=== PATIENT | female | born 1955 | race Hispanic/Latino ===

== ENCOUNTER 2021-02-13 06:28 | Observation (INO) | payer OTHER, MEDICARE ==
[2021-02-07 11:37] LABS: BASOPHILS % (AUTO) 0.6 % (0.0-5.0); EOSINOPHILS % (AUTO) 2.1 % (0.0-8.0); HEMATOCRIT 39.2 % (36-48); LYMPHOCYTES % (AUTO) 14.6 % (21.0-51.0); MEAN CORPUSCULAR HEMOGLOBIN 28.7 pg (27.0-33.0); MEAN CORPUSCULAR HGB CONC 32.1 g/dL (32.0-36.0); MEAN CORPUSCULAR VOLUME 89.3 fL (79-99); MONOCYTES % (AUTO) 6.6 % (3.0-13.0); NEUTROPHILS % (AUTO) 75.8 % (40.0-77.0); PLATELET COUNT (AUTO) 279 K/uL (130-400); RED BLOOD CELL COUNT(AUTO) 4.39 MIL/uL (4.00-5.50); RED CELL DISTRIBUTION WIDTH 14.4 % (11.0-15.5); WHITE BLOOD COUNT (AUTO) 10.1 K/uL (4.8-10.8)
[2021-02-07 11:48] LABS: CREATININE 0.5 mg/dL (0.5-1.5); POTASSIUM 4.2 mmol/L (3.5-5.1)
[2021-02-07 11:51] LABS: INR 0.93 (0.85-1.15); PROTHROMBIN TIME 10.2 SEC (9.6-11.6)
[2021-02-07 11:52] LABS: PARTIAL THROMBOPLASTIN TIME 26.9 SEC (26.3-35.5)
[2021-02-13] VITALS (21 sets, daily range): BP systolic 106–160; BP diastolic 57–76
[~2021-02-13] VITALS: Ht 154.9 cm; Wt 72.3 kg
[~2021-02-13 06:28] MED LIST: AEC81 PO; ALEN70TA80 PO; ATOR20TA65 PO; BETA1TAB18 PO; BIMA12.5OS OD; BRIM15OS OD; CALC-17 PO; CALCIUM PO; CYCL30DR OP; DORZ10DR9 OD; FISH1CAP63 PO; GLUC-252 PO; LISI40TA9 PO; METF-444 PO; METO-391 PO; NETA2.5D OP; [UNRECOGNIZED DRUG - OTHER] PO; multivitamin PO
[2021-02-13] MEDS ORDERED: BACITRACIN 28.4 GM OINT TP ONE (07:02)
[2021-02-13] MEDS ORDERED: 0.9%NACL 1000ML 1,000 ML IV ONE (07:07)
[2021-02-13] MEDS ORDERED: LIDOCAINE HCL/EPINEPHRINE 50 ML VIAL IJ SCH ×2 (07:30)
[2021-02-13] MEDS ORDERED: LIDOCAINE HCL-MPF 1% 5ML AMP IJ ONE (07:33)
[2021-02-13] MEDS ORDERED: PROPOFOL 10 MG/ML 20ML VIAL IV ONE (07:33)
[2021-02-13] MEDS ORDERED: SUCCINYLCHOLINE CHLORIDE 20 MG/ML 10 ML VIAL ONE (07:33)
[2021-02-13] MEDS ORDERED: MIDAZOLAM HCL 1 MG/ML 2ML VIAL ONE (07:33)
[2021-02-13] MEDS ORDERED: FENTANYL CITRATE PF 50 MCG/1 ML 5ML AMP IV ONE (07:34)
[2021-02-13] MEDS ORDERED: ROCURONIUM 10MG/1ML SYR 10 MG/ML ML ONE (07:34)
[2021-02-13] MEDS ORDERED: CEFAZOLIN SODIUM 1 GM VIAL ONE (07:50)
[2021-02-13] MEDS ORDERED: EPHEDRINE SULFATE 50 MG/ML AMPULE ONE (08:09)
[2021-02-13] MEDS ORDERED: PHENYLEPHRINE HCL 10 MG/ML 1ML VIAL IV ONE (10:18)
[2021-02-13] MEDS ORDERED: FENTANYL CITRATE PF 50 MCG/1 ML 2ML VIAL ONE (10:29)
[2021-02-13] MEDS ORDERED: HYDROMORPHONE HCL 2 MG TAB PO PRN (14:00)
[2021-02-13] MEDS: ACETAMINOPHEN 500 MG TABLET PO SCH ×2 (14:04→20:18)
[2021-02-13] MEDS: ONDANSETRON 4MG INJ IVP PRN (17:54)
[2021-02-13] MEDS ORDERED: BRIMONIDINE TARTRATE 0.2% 5 ML BOTTLE OD SCH (21:00)
[2021-02-13] MEDS ORDERED: Cyclosporine (Restasis) 1 EACH OP SCH (21:00)
[2021-02-14] MEDS: ACETAMINOPHEN 500 MG TABLET PO SCH ×2 (02:03→08:00)
[2021-02-14] MEDS: ONDANSETRON 4MG INJ IVP PRN (02:06)
[2021-02-14 03:00] VITALS: BP 106/59
[2021-02-14] MEDS ORDERED: METFORMIN HCL 500 MG TABLET PO SCH (09:00)
[2021-02-14] MEDS ORDERED: FISH OIL 1000 MG/CAP PO SCH (09:00)
[2021-02-14] MEDS ORDERED: LISINOPRIL 40 MG TABLET PO SCH (09:00)
[2021-02-14] MEDS ORDERED: ATORVASTATIN 20 MG TABLET PO SCH (09:00)
[2021-02-14] MEDS ORDERED: GLUCOSAMINE PO SCH (09:00)
[2021-02-14] MEDS ORDERED: D3 PO SCH (09:00)
[2021-02-14] MEDS ORDERED: VIT A C PO SCH (09:00)
[2021-02-14] MEDS ORDERED: [UNRECOGNIZED DRUG - OTHER] PO SCH (09:00)
[2021-02-14] MEDS ORDERED: Bimatoprost (Lumigan 0.01% Ophth Soln) OD SCH (09:00)
[2021-02-14] MEDS ORDERED: CALCIUM CARB 500MG PO SCH (09:00)
[2021-02-14] MEDS ORDERED: BOSWELLIA SERRA PO SCH (09:00)
[2021-02-14] MEDS ORDERED: LUTEIN PO SCH (09:00)
[2021-02-14] MEDS ORDERED: METOPROLOL SUCCINATE 50 MG TAB.SR.24H PO SCH (09:00)
[2021-02-14] MEDS ORDERED: MINERALS PO SCH (09:00)
[2021-02-14] MEDS ORDERED: BACITRACIN 28.4 GM OINT TP SCH (09:00)
[2021-02-14] MEDS ORDERED: NETARSUDIL MESYLATE OP SCH (09:00)
[2021-02-14] MEDS ORDERED: DORZOLAMIDE HCL 2% 10ML DROPS OD SCH (09:00)
[2021-02-14] MEDS ORDERED: BACI28OI8 TP (10:42)
== END 2021-02-14 11:30 | disposition home or self-care (01) ==
LOC: DAH 06:28 → DAHIP 06:29 → DAH 06:29 → WSH 13:10
PROVIDERS: ADMIT Otolaryngology; ATTEND Otolaryngology
DX: D49.0 Neoplasm of unspecified behavior of digestive system (principal); Z20.822 Contact with and (suspected) exposure to COVID-19; D11.0 Benign neoplasm of parotid gland; R11.2 Nausea with vomiting, unspecified; Z79.899 Other long term (current) drug therapy
CPT/HCPCS: 36415; 42415; 80048; 82948; 85025; 85610; 85730; 87635; 93005; 96361 ×2; 96374; 96376; A4215; A4216; A4221; A4222; A4223 ×2; A4344; A4649 ×2; A4663; A4930 ×2; A6204; A6207; A6260; C9803; G0378 ×21; J0330; J0690; J2250; J2370; J2405 ×2; J2704; J3010 ×2; J3490 ×2; J7030 ×2